=== PATIENT | female | born 1965 | race Caucasian/White ===

== ENCOUNTER 2023-02-05 23:35 | Emergency (ER) | payer BC ==
[2023-02-06] MEDS ORDERED: HYDROCODONE/APAP 7.5/325 MG TAB ONE (00:09)
[2023-02-06] MEDS ORDERED: ACETAMINOPHEN 500 MG TAB ONE (00:15)
--- NOTE | 2023-02-06 01:07 | EDPHYS ---
Physician Documentation [facility] Name: Marry Lai Age: 57 yrs Sex: Female : 1965 Arrival Date: 02/05/2023 Time: 23:35 Bed 20 Private MD: ANA LILIA Physician Homar Galdamez HPI: 02/05 23:51 This 57 yrs old Female presents to ER via Unassigned with complaints of [facility] Facial Injury, Eye Swelling. 23:51 The patient or guardian reports pain, swelling, tenderness. The complaints affect the [facility] left cheek and left eye. Context of injury: The problem was sustained outdoors. Onset: The symptoms/episode began/occurred just prior to arrival. Associated signs and symptoms: Loss of consciousness: This patient did not experience any loss of consciousness. 23:54 Severity of symptoms: At their worst the symptoms were mild, moderate, in the emergency [facility] department the symptoms are unchanged. The patient has not experienced similar symptoms in the past. Historical: - Allergies: 02/06 00:16 No Known Allergies; pf1 - PMHx: 00:16 Hypothyroidism; elevated liver enzymes; pf1 - PSHx: 00:16 right ankle; right wrist; breast reduction; uterine ablation; Appendectomy; pf1 - Immunization history:: Adult Immunizations up to date, Client reports receiving the 2nd dose of the Covid vaccine, Last tetanus immunization: > 10 years ago. - Social history:: Smoking status: Patient denies any tobacco usage or history of. Patient/guardian denies using alcohol, street drugs. - Family history:: not pertinent. ROS: 02/05 23:54 Constitutional: Negative for fever, chills, and weight loss, Eyes: Negative for injury, heidi pain, redness, and discharge, Neck: Negative for injury, pain, and swelling, Cardiovascular: Negative for chest pain, palpitations, and edema, Respiratory: Negative for shortness of breath, cough, wheezing, and pleuritic chest pain, Abdomen/GI: Negative for abdominal pain, nausea, vomiting, diarrhea, and constipation, Back: Negative for injury and pain, : Negative for injury, bleeding, discharge, and swelling, MS/Extremity: Negative for injury and deformity, Skin: Negative for injury, rash, and discoloration, Neuro: Negative for headache, weakness, numbness, tingling, and seizure, Psych: Negative for depression, anxiety, suicide ideation, homicidal ideation, and hallucinations, Allergy/Immunology: Negative for hives, rash, and allergies, Endocrine: Negative for neck swelling, polydipsia, polyuria, polyphagia, and marked weight changes, Hematologic/Lymphatic: Negative for swollen nodes, abnormal bleeding, and unusual bruising. ENT: Positive for sinus congestion. Exam: 23:54 Constitutional: This is a well developed, well nourished patient who is awake, alert, heidi and in no acute distress. Head/Face: Normocephalic, atraumatic. ENT: Nares patent. No nasal discharge, no septal abnormalities noted. Tympanic membranes are normal and external auditory canals are clear. Oropharynx with no redness, swelling, or masses, exudates, or evidence of obstruction, uvula midline. Mucous membranes moist. Neck: Trachea midline, no thyromegaly or masses palpated, and no cervical lymphadenopathy. Supple, full range of motion without nuchal rigidity, or vertebral point tenderness. No Meningismus. Chest/axilla: Normal chest wall appearance and motion. Nontender with no deformity. No lesions are appreciated. Cardiovascular: Regular rate and rhythm with a normal S1 and S2. No gallops, murmurs, or rubs. Normal PMI, no JVD. No pulse deficits. Respiratory: Lungs have equal breath sounds bilaterally, clear to auscultation and percussion. No rales, rhonchi or wheezes noted. No increased work of breathing, no retractions or nasal flaring. Abdomen/GI: Soft, non-tender, with normal bowel sounds. No distension or tympany. No guarding or rebound. No evidence of tenderness throughout. Back: No spinal tenderness. No costovertebral tenderness. Full range of motion. Skin: Warm, dry with normal turgor. Normal color with no rashes, no lesions, and no evidence of cellulitis. MS/ Extremity: Pulses equal, no cyanosis. Neurovascular intact. Full, normal range of motion. Neuro: Awake and alert, GCS 15, oriented to person, place, time, and situation. Cranial nerves II-XII grossly intact. Motor strength 5/5 in all extremities. Sensory grossly intact. Cerebellar exam normal. Normal gait. Psych: Awake, alert, with orientation to person, place and time. Behavior, mood, and affect are within normal limits. 23:54 Head/face: Noted is contusion, deformity, hematoma, that is severe, of the left cheek and left eye. 23:54 Eyes: Periorbital structures: swelling, contusion, that is moderate, that is marked, on the left lower eyelid, ecchymosis, Pupils: no acute changes, equal, round, and reactive to light and accomodation, Extraocular movements: intact throughout, Conjunctiva: normal, Corneas: are normal, Sclera: no appreciated abnormality, Anterior chamber: normal, no acute changes. Vital Signs: 23:41 BP 156 / 98; Pulse 56; Resp 18; Temp 98.2; Pulse Ox 100% on R/A; Weight 52.16 kg; pf1 Height 5 ft. 5 in. ; Pain 04/14; 02/06 00:35 BP 151 / 91; Pulse 51; Resp 17 S; Pulse Ox 99% on R/A; ha1 01:35 BP 144 / 86; Pulse 50; Resp 18 S; Pulse Ox 99% on R/A; ha1 02/05 23:41 Body Mass Index 19.14 (52.16 kg, 165.1 cm) pf1 02/05 23:41 Pain Scale: Adult pf1 [place] Coma Score: 02/05 23:54 Eye Response: spontaneous(4). Motor Response: obeys commands(6). Verbal Response: heidi oriented(5). Total: 15. 23:57 Eye Response: spontaneous(4). Motor Response: obeys commands(6). Verbal Response: heidi oriented(5). Total: 15. MDM: 23:50 Patient medically screened. heidi 23:57 Differential diagnosis: Contusion of Hematoma on head, face. Data reviewed: vital heidi signs, nurses notes, radiologic studies, CT scan. Consideration of Admission/Observation Escalation of care including admission/observation considered. I considered the following discharge prescriptions or medication management in the emergency department Medications were administered in the Emergency Department. See MAR. Test considered but Not performed: Labs: no labs. Care significantly affected by the following chronic conditions: no hx. Counseling: I had a detailed discussion with the patient and/or guardian regarding: the historical points, exam findings, and any diagnostic results supporting the discharge/admit diagnosis, radiology results, the need for outpatient follow up, for definitive care, an ENT specialist. 02/05 23:51 Order name: CT Facial Bones W/O Con [facility] 02/05 23:53 Order name: CT C Spine [facility] 02/05 23:51 Order name: Ice pack; Complete Time: 23:56 [facility] Administered Medications: 02/06 00:04 Not Given (Duplicate Order): Hydrocodone-Acetaminophen PO (7.5 mg-325 mg) 1 tabs PO oncecha 00:09 Drug: Acetaminophen PO 1000 mg Route: PO; ha1 00:50 Follow up: Response: No adverse reaction; Pain is decreased ha1 Disposition Summary: 02/06/23 01:06 Discharge Ordered Location: Home [facility] Problem: new heidi Symptoms: have improved heidi Condition: Stable heidi Diagnosis - Contusion of unspecified part of head - left facial / periorbital heidi Followup: heidi - With: Private Physician - When: 2 - 3 days - Reason: Recheck today's complaints, Continuance of care, Re-evaluation by your physician Discharge Instructions: - Discharge Summary Sheet heidi - Facial or Scalp Contusion heidi - Hematoma heidi - Hematoma, [id number] hiedi - RICE Therapy for Routine Care of Injuries heidi - RICE Therapy for Routine Care of Injuries, [id number] heidi - Facial or Scalp Contusion, [id number] [facility] Forms: - Medication Reconciliation Form [facility] - Thank You Letter [facility] - Antibiotic Education heidi - Prescription Opioid Use heidi - Patient Portal Instructions [facility] Prescriptions: - Augmentin 875-125 mg Oral Tablet - take 1 tablet by ORAL route every 12 hours for 10 days; 20 tablet; Refills: 0, heidi Product Selection Permitted Signatures: Dispatcher [employer] Homar Love MD MD cha Ayala, Heidy RN RN ha1 Aliya Jones RN RN pf1
--- NOTE | 2023-02-06 01:07 | ER ---
Nurse's Notes [facility] Name: Marry Lai Age: 57 yrs Sex: Female : 1965 Arrival Date: 02/05/2023 Time: 23:35 Bed 20 Private MD: Diagnosis: Contusion of unspecified part of head-left facial / periorbital Presentation: 02/05 23:41 Chief complaint: Patient states: left side facial and eye contusion with swelling and pf1 pain of 10,onset 2044. Patient stated was pulling the recyclable container, when the wind caught the lid of the bin then hit her left side face onto the container. Coronavirus screen: Vaccine status: Patient reports receiving the 2nd dose of the covid vaccine. Client denies travel out of the [place] in the last 14 days. At this time, the client does not indicate any symptoms associated with coronavirus-19. 23:41 Method Of Arrival: Ambulatory pf1 23:41 Ebola Screen: Patient negative for fever greater than or equal to 101.5 degrees pf1 Fahrenheit, and additional compatible Ebola Virus Disease symptoms. Initial Sepsis Screen: Does the patient meet any 2 criteria? No. Patient's initial sepsis screen is negative. Does the patient have a suspected source of infection? No. Patient's initial sepsis screen is negative. Risk Assessment: Do you want to hurt yourself or someone else? Patient reports no desire to harm self or others. 23:41 Acuity: LÓPEZ 3 pf1 23:41 Onset of symptoms was February 06, 2023. ha1 Triage Assessment: 23:41 General: Appears uncomfortable, Behavior is calm, cooperative. Pain: Complains of pain ha1 in left lower eyelid Pain does not radiate. Pain currently is 9 out of 10 on a pain scale. Quality of pain is described as burning, throbbing. Neuro: Level of Consciousness is awake, alert, obeys commands, Oriented to person, place, time, situation. Cardiovascular: Patient's skin is warm and dry. Respiratory: Historical: - Allergies: 02/06 00:16 No Known Allergies; pf1 - PMHx: 00:16 Hypothyroidism; elevated liver enzymes; pf1 - PSHx: 00:16 right ankle; right wrist; breast reduction; uterine ablation; Appendectomy; pf1 - Immunization history:: Adult Immunizations up to date, Client reports receiving the 2nd dose of the Covid vaccine, Last tetanus immunization: > 10 years ago. - Social history:: Smoking status: Patient denies any tobacco usage or history of. Patient/guardian denies using alcohol, street drugs. - Family history:: not pertinent. Screenin/03 23:41 [facility] ED Fall Risk Assessment (Adult) History of falling in the last 3 months, ha1 including since admission No falls in past 3 months (0 pts) Confusion or Disorientation No (0 pts) Intoxicated or Sedated No (0 pts) Impaired Gait No (0 pts) Mobility Assist Device Used No (0 pt) Altered Elimination No (0 pt) Score/Fall Risk Level 0 - 2 = Low Risk Oriented to surroundings, Maintained a safe environment, Educated pt \T\ family on fall prevention, incl call for assistance when getting out of bed. Abuse screen: Denies threats or abuse. Denies injuries from another. Nutritional screening: No deficits noted. Tuberculosis screening: No symptoms or risk factors identified. Primary Survey: 02/06 01:34 NO uncontrolled hemorrhage observed. A: The client is awake and alert. The airway is ha1 patent. Breathing/Chest: Spontaneous respiratory effort, equal unlabored respirations, breath sounds clear bilaterally, regular pattern, symmetrical chest rise and fall. Circulation: No external hemorrhage present. Regular and strong central pulse, skin warm/dry/normal color. Disability Client is alert. Exposure/Environment: All clothing and personal items were removed. Forensic evidence collection is not deemed to be indicated at this time. Items placed in patient belonging bag. Assessment: 02/05 23:41 Reassessment: see triage assessment. ha1 02/06 00:40 Reassessment: Patient and/or family updated on plan of care and expected duration. Pain ha1 level reassessed. Patient is alert, oriented x 3, equal unlabored respirations, skin warm/dry/pink. 01:35 Reassessment: Patient and/or family updated on plan of care and expected duration. Pain ha1 level reassessed. Patient is alert, oriented x 3, equal unlabored respirations, skin warm/dry/pink. Vital Signs: 02/05 23:41 BP 156 / 98; Pulse 56; Resp 18; Temp 98.2; Pulse Ox 100% on R/A; Weight 52.16 kg; pf1 Height 5 ft. 5 in. ; Pain 10/10; 08 00:35 BP 151 / 91; Pulse 51; Resp 17 S; Pulse Ox 99% on R/A; ha1 01:35 BP 144 / 86; Pulse 50; Resp 18 S; Pulse Ox 99% on R/A; ha1 02/05 23:41 Body Mass Index 19.14 (52.16 kg, 165.1 cm) pf1 02/05 23:41 Pain Scale: Adult pf1 [place] Coma Score: 02/05 23:54 Eye Response: spontaneous(4). Motor Response: obeys commands(6). Verbal Response: heidi oriented(5). Total: 15. 23:57 Eye Response: spontaneous(4). Motor Response: obeys commands(6). Verbal Response: heidi oriented(5). Total: 15. ED Course: 23:36 Patient arrived in ED. am2 23:41 Arm band placed on right wrist. ha1 23:41 Patient has correct armband on for positive identification. Placed in gown. Bed in low ha1 position. Call light in reach. Side rails up X 1. 23:50 Homar Galdamez MD is Attending Physician. [facility] 02/06 00:09 Dilma Kwok RN is Primary Nurse. ha1 00:16 Triage completed. pf1 00:48 CT Facial Bones W/O Con In Process Unspecified. EDMS 00:48 CT C Spine In Process Unspecified. EDMS 01:30 No provider procedures requiring assistance completed. Patient did not have IV access ha1 during this emergency room visit. 01:35 Provided Education on: follow ups. ha1 Administered Medications: 00:04 Not Given (Duplicate Order): Hydrocodone-Acetaminophen PO (7.5 mg-325 mg) 1 tabs PO oncecha 00:09 Drug: Acetaminophen PO 1000 mg Route: PO; ha1 00:50 Follow up: Response: No adverse reaction; Pain is decreased ha1 Medication: 01:35 VIS not applicable for this client. ha1 Outcome: 01:06 Discharge ordered by . [facility] 01:35 Condition: stable ha1 01:35 Discharged to home ambulatory, with family. ha1 01:35 Discharge instructions given to patient, family, Instructed on discharge instructions, follow up and referral plans. medication usage, Demonstrated understanding of instructions, follow-up care, medications, Prescriptions given X 1. 01:37 Patient left the ED. ha1 Signatures: Dispatcher [employer] EDMS Homar Galdamez MD MD cha Moreno, Amanda am2 Dilma Kwok RN RN ha1 Aliya Jones RN RN pf1 Corrections: (The following items were deleted from the chart) 02: 00:40 BP 144 / 86; Pulse 50bpm; Resp 18bpm; Spontaneous; Pulse Ox 99% RA; ha1 ha1 02: 01:40 BP 144 / 86; Pulse 50bpm; Resp 18bpm; Spontaneous; Pulse Ox 99% RA; ha1 ha1
[2023-02-06 01:42] VITALS: TEMP 98.2
[2023-02-06 01:43] VITALS: O2SAT 99
[2023-02-06 01:44] VITALS: BP 144/86
--- NOTE | 2023-02-06 16:52 | RAD REPORT ---
EXAM DESCRIPTION: Facial Bones W/ Mpr CLINICAL HISTORY: 57 years Female Facial pain;Deformity;Swelling;Pain COMPARISON: None TECHNIQUE: Images were obtained in axial, sagittal, and coronal planes. No intravenous contrast was administered. This exam was performed according to our departmental dose-optimization program which includes use of Automated Exposure Control, adjustment of the mA and/or kV according to patient size and/or use of i terative reconstruction technique. FINDINGS: No nasal bone fractures. Anterior maxillary spine is intact. Extensive left facial edema and hematoma extending from the left periorbital region to the mandible. No fractures involving the orbits bilaterally were zygomatic arches. Pterygoid plates intact. No mauricio ibular fractures. Intact globes bilaterally. No intraconal or extraconal abnormality. No fractures in volving the orbital floors bilaterally. Unremarkable paranasal sinuses. No air-fluid levels seen. IMPRESSION: Extensive left facial soft tissue swelling with hematoma extending from the left periorb ital region to the mandible. No acute fracture or subluxation seen. Electronically signed by: Jessica Rosario MD 02/06/2023 1:02 AM CDT Due to temporary technical issues with the PACS/Fluency reporting system, reports are being signed by the in house radiologists without review as a courtesy to insure prompt reporting. The interpreting radiologist is fully responsible for the content of the report.
--- NOTE | 2023-02-06 17:10 | RAD REPORT ---
EXAM DESCRIPTION: C Spine Wo Con CLINICAL HISTORY: 57 years Female PAIN COMPARISON: None TECHNIQUE: Images were obtained in axial, sagittal, and coronal planes. This exam was performed according to our departmental dose-optimization program which includes use of Automated Exposure Control, adjustment of the mA and/or kV according to patient size and/or use of i terative reconstruction technique. FINDINGS: The vertebral bodies is intact. Satisfactory alignment and articular facets. No significan t degenerative change. Intact odontoid and predental space. Prevertebral soft tissues appear normal. Intact C1. Posterior el ements intact on all levels. Intact occipital condyles. No abnormality lung apices bilaterally. No focal disc protrusion. Extensive left facial soft tissue swelling with hematoma. IMPRESSION: No acute fracture or subluxation involving the cervical spine. Extensive left facial sof t tissue swelling with hematoma. Electronically signed by: Jessica Rosario MD 02/06/2023 1:10 AM CDT Due to temporary technical issues with the PACS/Fluency reporting system, reports are being signed by the in house radiologists without review as a courtesy to insure prompt reporting. The interpreting radiologist is fully responsible for the content of the report.
== END 2023-02-06 01:37 | disposition home or self-care (01) ==
LOC: ER 23:35
DX: S00.83XA Contusion of other part of head, initial encounter (principal)
CPT/HCPCS: 70486; 72125; 76377; 99283